=== PATIENT | female | born 1980 | race Caucasian/White ===

== ENCOUNTER 2019-06-04 17:46 | Observation (INO) | payer OTHER ==
--- NOTE | 2019-06-04 17:59 | PDOC ---
Rapid Medical Evaluation Chief Complaint: Shortness of Breath Time Seen by Provider: 06/04/19 17:54 Medical Evaluation: 06/04/19 17:54 I have performed a brief in-person evaluation of this patient. The patient presents with a chief complaint of: Intermittent sob and CP x 3 days. S/p cardiac cath w/ 1 stent placement on 05/29 in [place]. No palpitations , leg pain/swelling, f/c. On metoprolol, asa, gabapentin (developed LUE pain s/ p cath) Pertinent physical exam findings:Stable and well justin I have ordered the following:ekg/cxr/labs The patient will proceed to the ED for further evaluation. 06/04/19 17:58 Discharge Disposition - Diagnosis Chest pain Qualifiers: Chest pain type: unspecified Qualified Code(s): R07.9 - Chest pain, unspecified - Referrals - Patient Instructions - Post Discharge Activity
[2019-06-04 18:49] LABS: BASO % 0.6 % (0-2.0); EOS % 2.5 % (0-4.5); HEMATOCRIT 32.2 % (32.4-45.2); HEMOGLOBIN 10.7 GM/dL (10.7-15.3); LYMPH % 21.9 % (8-40); MCH 27.6 pg (25.7-33.7); MCHC 33.2 g/dl (32.0-36.0); MEAN PLT VOLUME 9.2 fl (7.5-11.1); MONO % 8.2 % (3.8-10.2); NEUT % 66.8 % (42.8-82.8); PLATELET COUNT 297 K/MM3 (134-434); RBC 3.87 M/mm3 (3.60-5.2); RDW 18.7 % (11.6-15.6); WHITE BLOOD COUNT 7.8 K/mm3 (4.0-10.0)
[2019-06-04] MEDS ORDERED: SODIUM CHLORIDE 0.9% 500 ML INFUS.BAG IV ONE (19:03)
[2019-06-04] MEDS ORDERED: ONDANSETRON 4 MG/2 ML VIAL IVPUSH ONE (19:03)
[2019-06-04] MEDS ORDERED: ONDANSETRON 4 MG/2 ML VIAL ONE (19:31)
--- NOTE | 2019-06-04 20:19 | PDOC ---
Documentation entered by Kevin Allen SCRIBE, acting as scribe for Yahaira Zhu DO. Yahaira Zhu DO: This documentation has been prepared by the Alejandro cohen Daniel, SCRIBE, under my direction and personally reviewed by me in its entirety. I confirm that the documentation accurately reflects all work, treatment, procedures, and medical decision making performed by me. Attending Attestation - Resident Resident Name: Greg Jordan - ED Attending Attestation I have performed the following: I have examined & evaluated the patient, The case was reviewed & discussed with the resident, I agree w/resident's findings & plan, Exceptions are as noted - HPI HPI: 06/04/19 19:37 The patient is a 38 year old female with a past medical history of HTN and CAD s /p PCI and balloon valvuloplasty (05/29/2019 [facility]) here today for evaluation of shortness of breath and chest pain. The patient reports that she has had 2 episodes of shortness of breath and left sided 9/10 chest pain that radiates from her jaw to her arm. She notes that these episodes lasted for 30- 60 seconds and notes associated left upper and lower extremity weakness, dizziness, diarrhea, chills, and nausea. Patient denies headache. Denies fever. Denies vomiting. Allergies: acetaminophen, ibuprofen PCP: Cora Navarro - Physicial Exam PE: 06/04/19 19:38 Constitutional: Awake, alert, oriented. No acute distress. Head: Normocephalic. Atraumatic Eyes: PERRL. EOMI. Conjunctivae are not pale. ENT: Mucous membranes are moist and intact. Posterior pharynx without exudates or erythema. Uvula midline. Neck: Supple. Full ROM. No lymphadenopathy. Cardiovascular: Regular rate. Regular rhythm. S1, S2 regular. Distal pulses are 2+ and symmetric. Pulmonary/Chest: No evidence of respiratory distress. Clear to auscultation bilaterally No wheezing, rales or rhonchi. Abdominal: Soft and non-distended. There is no tenderness. No rebound, guarding or rigidity. No organomegaly. No palpable masses. Good bowel sounds. Back: No CVA tenderness. Musculoskeletal: +cath site at right groin. +resolving echymosis around cath site. No masses or expanding hematoma around cath site. No edema. No cyanosis. No clubbing. Full range of motion in all extremities. No calf tenderness. Radial/pedal pulses are intact and 2+ bilaterally Skin: Skin is warm and dry. No petechiae. No purpura. Neurological: +4/5 weakness of the left upper and lower extremities. Alert and oriented to person, place, and time. Cranial nerves II-XII are grossly intact. Normal speech. No sensory deficits. Psychiatric: Good eye contact. Normal interaction, affect and behavior. - Medical Decision Making 06/04/19 20:17 I, Dr. Yahaira Zhu, DO, attest that this document has been prepared under my direction and personally reviewed by me in its entirety. I further attest, that it accurately reflects all work, treatment, procedures and medical decision -making performed by me. a/p: 38yo female with cp/sob/L sided weakness and dizziness -pt with intermittent cp today -pt is taking asa -pt states since her valvuloplasty she has had LUE and LLE weakness - 5 days of symptoms -4/5 weakness to LUE and LLE -concern given recent cath and interventional procedure for cp/sob -will send labs, ekg, cxr -LE duplex -head ct -will discuss with docs at [facility] 06/04/19 21:[address] without acute findings concern given new weakness and cp will admit for eval of LUE and LLE weakness and cp pt agreeable to stay for further eval microblog sent to [facility] for hospitalization 06/04/19 21:49 resident discussed the case with [facility] who accepts the patient to service Heart Score/ECG Review - ECG Intrepretation Comment:: 06/04/19 20:19 sinus at 91, incomplete rbbb, t wave inversions septal leads, abnl, nl axis, no acute st/t wave findings
[2019-06-04 20:23] LABS: BASO % 0.6 % (0-2.0); EOS % 1.6 % (0-4.5); HEMATOCRIT 32.6 % (32.4-45.2); HEMOGLOBIN 10.7 GM/dL (10.7-15.3); LYMPH % 15.8 % (8-40); MCH 27.2 pg (25.7-33.7); MCHC 32.7 g/dl (32.0-36.0); MEAN CELL VOLUME 83.3 fl (80-96); MEAN PLT VOLUME 9.4 fl (7.5-11.1); MONO % 7.9 % (3.8-10.2); NEUT % 74.1 % (42.8-82.8); PLATELET COUNT 310 K/MM3 (134-434); RBC 3.92 M/mm3 (3.60-5.2); RDW 19.2 % (11.6-15.6); WHITE BLOOD COUNT 9.6 K/mm3 (4.0-10.0)
[2019-06-04 20:40] LABS: INR 1.13 (0.83-1.09); PROTHROMBIN TIME (PATIENT) 13.4 SEC (9.7-13.0)
--- NOTE | 2019-06-04 20:44 | PDOC ---
History of Present Illness - General Chief Complaint: Shortness of Breath Stated Complaint: SOB Time Seen by Provider: 06/04/19 17:54 History Source: Patient Exam Limitations: No Limitations - History of Present Illness Initial Comments: 38 y/o F, pmh of Mitral valve stenosis s/p balloon Valvuloplasty, presents to the ED c/o of stabbing like constant left sided chest pain rated 9/10, that began 2 days ago and has since worsened radiating to the left side of the neck and left shoulder accompanied left sided body weakness and numbness and shortness of breath. Pt states that she had a recent elective mitral balloon valvuloplasty done 5 days ago by [facility] label paster Jono Garcia and was sent home on ASA only. As per pt, she had a stress test done prior to the procedure. She denies f/c/n/v/d/abdominal pain, sob, sore throat. 06/04/19 20:44 06/04/19 20:52 06/04/19 20:55 Associated Symptoms: reports: denies symptoms, chest pain, diaphoresis, shortness of breath. denies: cough, fever/chills, headaches Past History - Past Medical History Allergies/Adverse Reactions: Allergies Allergy/AdvReac Type Severity Reaction Status Date / Time acetaminophen [From Tylenol] Allergy Verified 06/04/19 17:54 ibuprofen [From Motrin] Allergy Verified 06/04/19 17:54 COPD: No Dialysis: No Other medical history: GASTRITIS - Immunization History Immunization Up to Date: Yes - Psycho Social/Smoking Cessation Hx Smoking History: Never smoked Hx Alcohol Use: No Drug/Substance Use Hx: No Review of Systems - Review of Systems Able to Perform ROS?: Yes Is the patient limited Mongolian proficient: No Constitutional: Yes: Symptoms Reported. No: Chills, Fever HEENTM: Yes: Symptoms Reported. No: Eye Pain, Blurred Vision Respiratory: Yes: Symptoms reported, Shortness of Breath. No: Cough, Wheezing, Productive cough Cardiac (ROS): Yes: Symptoms Reported, Chest Pain, Chest Tightness. No: Syncope ABD/GI: Yes: Symptoms Reported. No: Abdominal Distended, Diarrhea, Nausea, Vomiting Musculoskeletal: Yes: Symptoms Reported, Neck Pain Neurological: Yes: Symptoms reported, Numbness (left sided arm and leg), Weakness. No: Headache All Other Systems: Reviewed and Negative *Physical Exam - Vital Signs Last Vital Signs Temp Pulse Resp BP Pulse Ox 97.8 F 88 22 H 129/83 100 06/04/19 17:55 06/04/19 19:34 06/04/19 17:55 06/04/19 19:34 06/04/19 19:34 - Physical Exam General Appearance: Yes: Nourished, Appropriately Dressed HEENT: positive: EOMI, HALIMA, Normal ENT Inspection, Pharynx Normal Neck: positive: Trachea midline, Normal Thyroid, Supple Respiratory/Chest: positive: Lungs Clear, Normal Breath Sounds. negative: Crackles, Wheezing Cardiovascular: positive: Regular Rhythm, S1, S2, Tachycardia. negative: Murmur , Gallop/S3, Gallop/S4 (pain is not reproducible ) Vascular Pulses: Dorsalis-Pedis (R): 2+, Doralis-Pedis (L): 2+ Gastrointestinal/Abdominal: positive: Normal Bowel Sounds, Soft. negative: Guarding, Rebound, Tenderness Extremity: positive: Calf Tenderness (b/l calf tenderness) Neurologic: positive: film touch up inspector II-XII NML intact. negative: Fully Oriented, Normal Mood/Affect ED Treatment Course - LABORATORY CBC & Chemistry Diagram: 06/04/19 19:47 06/04/19 20:19 - ADDITIONAL ORDERS Additional order review: Laboratory Results 06/04/19 06/04/19 06/04/19 20:19 20:19 19:30 Sodium Cancelled Potassium Cancelled Chloride Cancelled Carbon Dioxide Cancelled Anion Gap Cancelled BUN Cancelled Creatinine Cancelled Est GFR (CKD-EPI)AfAm Cancelled Est GFR (CKD-EPI)NonAf Cancelled Random Glucose Cancelled Calcium Cancelled Total Bilirubin Cancelled AST Cancelled ALT Cancelled Alkaline Phosphatase Cancelled Creatine Kinase Cancelled Troponin I Cancelled Total Protein Cancelled Albumin Cancelled Triglycerides Cancelled Cholesterol Cancelled Total LDL Cholesterol Cancelled HDL Cholesterol Cancelled 06/04/19 06/04/19 19:47 18:10 RBC 3.92 3.87 MCV 83.3 83.0 MCHC 32.7 33.2 RDW 19.2 H 18.7 H MPV 9.4 9.2 Neutrophils % 74.1 66.8 Lymphocytes % 15.8 D 21.9 Monocytes % 7.9 8.2 Eosinophils % 1.6 2.5 Basophils % 0.6 0.6 - RADIOLOGY Radiology Studies Ordered: Category Date Time Status HEAD CT (STROKE) [CT] Stat CT Scan 06/04/19 19:47 Ordered DUPLEX VASCUL US-2LEGS [US] Stat Ultrasound 06/04/19 19:02 Taken - Medications Given in the ED: ED Medications Discontinued Medications Generic Name Dose Route Start Last Admin Trade Name Melvin PRN Reason Stop Dose Admin Ondansetron HCl 4 mg 06/04/19 19:03 06/04/19 19:48 Zofran Injection IVPUSH 06/04/19 19:04 4 mg ONCE ONE Administration Sodium Chloride 1,000 ml 06/04/19 19:03 06/04/19 19:48 Normal Saline - IV 06/04/19 19:04 1,000 ml ONCE ONE Administration Medical Decision Making - Medical Decision Making 38 y/o F, pmh of Mitral valve stenosis s/p balloon Valvuloplasty, presents to the ED c/o of stabbing like constant left sided chest pain rated 9/10, that began 2 days ago and has since worsened radiating to the left side of the neck and left shoulder accompanied left sided body weakness and numbness and shortness of breath #Chest pain s/p Mitral balloon valvuloplasty r/o ACS and r/o stroke PE: Left sided UE strength 4/5 sensation 4/5 Left LE strength 4/5 and sensation 4/5 Right sided UE and LE strength 5/5 Gait- mild difficulty standing, mild ataxia CN2-12 intact NIH 1 Asa and statins EKG Cardiac profile, trops Lactic acid, PT/INR CT head w/out contrast U/S b/l LE IVF Zofran 06/04/19 20:59 06/04/19 21:01 06/04/19 21:01 06/04/19 21:33 06/04/19 21:49 Discharge - Discharge Information Problems reviewed: Yes Clinical Impression/Diagnosis: Weakness Chest pain Qualifiers: Chest pain type: unspecified Qualified Code(s): R07.9 - Chest pain, unspecified Condition: Stable - Admission Yes - Follow up/Referral Referrals: Cora Navarro MD [Primary Care Provider] - - Patient Discharge Instructions - Post Discharge Activity
[2019-06-04 21:01] LABS: ALK PHOS 41 U/L (45-117); ANION GAP 6 MMOL/L (8-16); BILIRUBIN,TOTAL 0.2 mg/dL (0.2-1); BLOOD UREA NITROGEN 9.7 mg/dL (7-18); CALCIUM 9.6 mg/dL (8.5-10.1); CHLORIDE 106 mmol/L (98-107); CHOLESTEROL 170 mg/dL (50-200); CO2 27 mmol/L (21-32); CREATININE 0.7 mg/dL (0.55-1.3); GLUCOSE,RANDOM 88 mg/dL (74-106); HDL CHOLESTEROL 79 mg/dL (40-60); LDL CHOLESTEROL (ONLY SJRH) 74 mg/dL (5-100); SGOT/AST 8 U/L (15-37); SGPT/ALT 13 U/L (13-61); SODIUM 139 mmol/L (136-145); TOT PROT 7.7 g/dl (6.4-8.2); TRIGLYCERIDES 123 mg/dL (0-150)
[2019-06-04] MEDS ORDERED: ATORVASTATIN CA 80 MG TABLET (FP) PO ONE (21:42)
--- NOTE | 2019-06-04 21:58 | HP ---
CHIEF COMPLAINT: Chest pain PCP: Dr. Navarro Demurrage Man: Dr. Callejas ([facility]) HISTORY OF PRESENT ILLNESS: Ms. Cruz is a 38 year old female with PMH of mitral valve stenosis s/p balloon valvuloplasty (6 days ago) who presents with LUE weakness, numbness and tingling. Pt had procedure on May 29 at [facility] and was discharged with metoprolol, aspirin, and gabapentin. Since her procedure, she has been experiencing intermittent episodes of dizziness, flushing, nausea, and numbness/ tingling in BL hands. She has had 2 severe episodes in the past 2 days. She has also had LUE weakness and pain that is relieved when she takes gabapentin and has noticed mild L-sided facial weakness. Reports a dull chest pain since the surgery that is not severe, states she is more concerned about her other symptoms. Patient states that she has an infection in the bones of her L ear and is supposed to undergo surgery in June. However, she was told by her doctors that she had to receive the balloon valvuloplasty procedure first in order to undergo ear surgery. No other cardiac hx or strokes. No family hx of cardiac disease/strokes. ER course was notable for: (1) CT head: no acute intracranial pathology (2) CXR: no acute pathology (3) Received 80mg statin and 81mg asa Recent Travel: denies PAST MEDICAL HISTORY: As per HPI PAST SURGICAL HISTORY: Balloon valvuloplasty @ [facility] Social History: Smoking: denies Alcohol: denies Drugs: denies Allergies acetaminophen [From Tylenol] Allergy (Verified 06/04/19 17:54) ibuprofen [From Motrin] Allergy (Verified 06/04/19 17:54) HOME MEDICATIONS: REVIEW OF SYSTEMS CONSTITUTIONAL: Absent: fever, chills, diaphoresis, generalized weakness, malaise, loss of appetite, weight change HEENT: Absent: rhinorrhea, nasal congestion, throat pain, throat swelling, difficulty swallowing, mouth swelling, ear pain, eye pain, visual changes CARDIOVASCULAR: chest pain Absent: syncope, palpitations, irregular heart rate, lightheadedness, peripheral edema RESPIRATORY: shortness of breath Absent: cough, dyspnea with exertion, orthopnea, wheezing, stridor, hemoptysis GASTROINTESTINAL: Absent: abdominal pain, abdominal distension, nausea, vomiting, diarrhea, constipation, melena, hematochezia GENITOURINARY: Absent: dysuria, frequency, urgency, hesitancy, hematuria, flank pain, genital pain MUSCULOSKELETAL: Absent: myalgia, arthralgia, joint swelling, back pain, neck pain SKIN: Absent: rash, itching, pallor HEMATOLOGIC/IMMUNOLOGIC: Absent: easy bleeding, easy bruising, lymphadenopathy, frequent infections ENDOCRINE: Absent: unexplained weight gain, unexplained weight loss, heat intolerance, cold intolerance NEUROLOGIC: L-sided weakness, paresthesias Absent: headache, dizziness, unsteady gait, seizure, mental status changes, bladder or bowel incontinence PSYCHIATRIC: Absent: anxiety, depression, suicidal or homicidal ideation, hallucinations. PHYSICAL EXAMINATION Vital Signs - 24 hr 06/04/19 06/04/19 17:55 19:34 Temperature 97.8 F Pulse Rate 102 H Pulse Rate [ 88 Right Radial] Respiratory 22 H Rate Blood Pressure 125/75 Blood Pressure 129/83 [Left Arm] O2 Sat by Pulse 100 100 Oximetry (%) GENERAL: Awake, alert, and fully oriented, in no acute distress. HEAD: Normal with no signs of trauma. EYES: Pupils equal, round and reactive to light, extraocular movements intact, sclera anicteric, conjunctiva clear. No lid lag. EARS, NOSE, THROAT: Ears normal, nares patent, oropharynx clear without exudates. Moist mucous membranes. NECK: Normal range of motion, supple without lymphadenopathy, JVD, or masses. LUNGS: Breath sounds equal, clear to auscultation bilaterally. No wheezes, and no crackles. No accessory muscle use. HEART: Regular rate and rhythm, normal S1 and S2 without murmur, rub or gallop. ABDOMEN: Soft, nontender, not distended, normoactive bowel sounds, no guarding, no rebound, no masses. No hepatomegaly or splenomegaly. MUSCULOSKELETAL: Normal range of motion at all joints. No bony deformities or tenderness. No CVA tenderness. UPPER EXTREMITIES: 2+ pulses, warm, well-perfused. No cyanosis. No clubbing. No peripheral edema. LOWER EXTREMITIES: 2+ pulses, warm, well-perfused. No calf tenderness. No peripheral edema. NEUROLOGICAL: Cranial nerves II-XII intact. Normal speech. Normal gait. 4/5 strength in LUE and LLE. 5/5 on R. PSYCHIATRIC: Cooperative. Good eye contact. Appropriate mood and affect. SKIN: Warm, dry, normal turgor, no rashes or lesions noted, normal capillary refill. Laboratory Results - last 24 hr CBC, BMP 06/04/19 19:47 06/04/19 20:19 ASSESSMENT/PLAN: Ms. Cruz is a 38 year old female with PMH of mitral valve stenosis s/p balloon valvuloplasty (6 days ago) who presents with LUE weakness, numbness and tingling. #Rule out CVA and ACS EKG: NSR, no ST elevations or TWI Initial troponin neg, will trend with serial EKGs CT head: no acute intracranial pathology F/u echo and carotid dopplers Neuro symptoms of unknown etiology, may be 2/2 salicylate toxicity. Will f/u salicylate level and UA Neuro consultation (Dr. Bull) Cont gabapentin 100mg TID Tele monitoring #? Hx of Rheumatoid Arthritis Pt may have hx of RA, will obtain records from [facility] F/u ESR and CRP #S/p balloon valvuloplasty Pt was d/c'ed from [facility] with asa 650mg TID. Will decrease dose to 81mg daily Cont metoprolol succinate 12.5mg daily #FEN No standing fluids Sodium-controlled diet #DVT ppx Heparin #Dispo Monitor on tele Visit type - Emergency Visit Emergency Visit: Yes ED Registration Date: 06/04/19 Care time: The patient presented to the Emergency Department on the above date and was hospitalized for further evaluation of their emergent condition. - New Patient This patient is new to me today: Yes Date on this admission: 06/05/19 - Critical Care Critical Care patient: No ATTENDING PHYSICIAN STATEMENT I saw and evaluated the patient. I reviewed the resident's note and discussed the case with the resident. I agree with the resident's findings and plan as documented. SUBJECTIVE: OBJECTIVE: ASSESSMENT AND PLAN:
[2019-06-04] MEDS ORDERED: ATORVASTATIN CA 80 MG TABLET (FP) ONE (22:41)
--- NOTE | 2019-06-04 23:12 | PN ---
Teaching Attending Note Name of Resident: Cassie Burrows ATTENDING PHYSICIAN STATEMENT I saw and evaluated the patient. I reviewed the resident's note and discussed the case with the resident. I agree with the resident's findings and plan as documented. SUBJECTIVE: 38 year old female with a past medical history of HTN, RA?, Mitral valve stenosis status post balloon valvuloplasty (05/29/2019 [facility])with vague complaints including shortness of breath and Intermittent chest pain that she has had for about 1 day. Patient also complained of numbness in her left hand which is intermittent and numbness in her lower extremities bilaterally. She has felt feverish and reports numerous sick contacts including her cousin who is accompanying her. OBJECTIVE: Last Vital Signs Temp Pulse Resp BP Pulse Ox 97.8 F 79 18 127/77 100 06/04/19 23:01 06/04/19 23:01 06/04/19 23:01 06/04/19 23:01 06/04/19 23:01 GENERAL: Well developed, well nourished. Awake and alert. Appears uncomfortable HEENT: Normocephalic, atraumatic. PERRLA, EOMI. No conjunctival pallor. Sclera are non- icteric. Moist mucous membranes. Oropharynx is clear. NECK: Supple. Full ROM. No JVD. Carotid pulses 2+ and symmetric, without bruits. No thyromegaly. No lymphadenopathy. CARDIOVASCULAR: Regular rate and rhythm. No murmurs, rubs, or gallops. Distal pulses are 2+ and symmetric. PULMONARY: No evidence of respiratory distress. Lungs clear to auscultation bilaterally. No wheezing, rales or rhonchi. ABDOMINAL: Soft. Non-tender. Non-distended. No rebound or guarding. No organomegaly. Normoactive bowel sounds. MUSCULOSKELETAL Normal range of motion at all joints. No bony deformities or tenderness. No CVA tenderness. EXTREMITIES: No cyanosis. No clubbing. No edema. No calf tenderness. SKIN: Warm and dry. Normal capillary refill. No rashes. No jaundice. NEUROLOGICAL: Alert, awake, appropriate. Cranial nerves 2-12 intact. No deficits to light touch and temperature in face, upper extremities and lower extremities. No motor deficits in the in face, upper extremities and lower extremities. PSYCHIATRIC: Cooperative. Good eye contact. Appropriate mood and affect. Abnormal Lab Results 06/04/19 06/04/19 06/04/19 18:10 19:47 20:19 Hct 32.2 L RDW 18.7 H 19.2 H Anion Gap 6 L AST 8 L Alkaline Phosphatase 41 L HDL Cholesterol 79 H Imaging studies reviewed Head CT was negative for any acute intracranial pathology Lower extremity Dopplers negative for any acute DVT ASSESSMENT AND PLAN: #Intermittent chest pain status post recent PCI/mitral valve valvuloplasty. Should rule out ACS at this time given recent procedure, patient is at high risk for acute cardiac events. Troponin was negative x1. Given history of left upper extremity numbness would consider TIA at this time and would rule out CVA. General malaise is suspicious for possible URI. Should rule out influenza. Admit to telemetry Trend troponins Echo Consider cardiology evaluation Sublingual nitroglycerin as needed if persistent chest pain Statin Aspirin Beta-pattie Neurology evaluation Carotid duplex ultrasound Bedside speech and swallow evaluation Send flu swab ESR and CRP DVT prophylaxisheparin subcutaneously
[2019-06-05 00:20] VITALS: BMI 22.4
[2019-06-05] MEDS: HEPARIN NA (PORCINE) 5,000 UNITS/ML 1ML VIAL SQ SCH ×2 (05:59→14:42)
[2019-06-05] MEDS ORDERED: GABAPENTIN 100 MG CAPSULE (FP) PO SCH (06:00)
[2019-06-05 07:33] LABS: BASO % 1.1 % (0-2.0); EOS % 3.5 % (0-4.5); HEMATOCRIT 29.9 % (32.4-45.2); HEMOGLOBIN 9.9 GM/dL (10.7-15.3); LYMPH % 21.9 % (8-40); MCH 27.1 pg (25.7-33.7); MEAN CELL VOLUME 82.2 fl (80-96); MEAN PLT VOLUME 9.1 fl (7.5-11.1); MONO % 10.5 % (3.8-10.2); PLATELET COUNT 281 K/MM3 (134-434); RBC 3.64 M/mm3 (3.60-5.2); RDW 18.9 % (11.6-15.6); WHITE BLOOD COUNT 6.1 K/mm3 (4.0-10.0)
[2019-06-05 08:20] LABS: ALBUMIN 3.7 g/dl (3.4-5.0); BILIRUBIN,TOTAL 0.4 mg/dL (0.2-1); BLOOD UREA NITROGEN 10.7 mg/dL (7-18); CALCIUM 9.3 mg/dL (8.5-10.1); CREATININE 0.6 mg/dL (0.55-1.3); MAGNESIUM 2.5 mg/dL (1.8-2.4); PHOSPHOROUS 4.2 mg/dL (2.5-4.9); POTASSIUM 4.2 mmol/L (3.5-5.1); TOT PROT 7.1 g/dl (6.4-8.2)
--- NOTE | 2019-06-05 08:47 | CONSULT ---
Consult - text type - Consultation Consultation Note: Neurology CHIEF COMPLAINT: Chest pain PCP: Dr. Navarro Assistant Store Manager Operations: Dr. Callejas ([facility]) HISTORY OF PRESENT ILLNESS: 38 year old female with PMH of mitral valve stenosis s/p balloon valvuloplasty ( 6 days prior to day of admission) who presented with LUE weakness, numbness and tingling. Pt had procedure on May 29 at [facility] and was discharged with metoprolol, aspirin, and gabapentin. Since her procedure, she has been experiencing intermittent episodes of dizziness, flushing, nausea, and numbness/ tingling in BL hands. She had 2 severe episodes in the 2 days prior to admission. She also had LUE weakness and pain that relieved when she took gabapentin and also noticed mild L-sided facial weakness. She Reported a dull chest pain since the surgery that is not severe, states she is more concerned about her other symptoms. Patient stated that she has an infection in the bones of her L ear and is supposed to undergo surgery in June. However, she was told by her doctors that she had to receive the balloon valvuloplasty procedure first in order to undergo ear surgery. Ct of head was completed and showed no evidence of acute intracranial patology. This AM, she reports episodic pain but LUE strength intact. Appears to have generalized fatigue and without focal deficits. Past History Recent Travel: denies PAST MEDICAL HISTORY: GASTRITIS PAST SURGICAL HISTORY: Balloon valvuloplasty @ [facility] Social History: Smoking: denies Alcohol: denies Drugs: denies Family: HTN Review of Systems REVIEW OF SYSTEMS CONSTITUTIONAL: Absent: fever, chills, diaphoresis, generalized weakness, malaise, loss of appetite, weight change HEENT: Absent: rhinorrhea, nasal congestion, throat pain, throat swelling, difficulty swallowing, mouth swelling, ear pain, eye pain, visual changes CARDIOVASCULAR: chest pain Absent: syncope, palpitations, irregular heart rate, lightheadedness, peripheral edema RESPIRATORY: shortness of breath Absent: cough, dyspnea with exertion, orthopnea, wheezing, stridor, hemoptysis GASTROINTESTINAL: Absent: abdominal pain, abdominal distension, nausea, vomiting, diarrhea, constipation, melena, hematochezia GENITOURINARY: Absent: dysuria, frequency, urgency, hesitancy, hematuria, flank pain, genital pain MUSCULOSKELETAL: Absent: myalgia, arthralgia, joint swelling, back pain, neck pain SKIN: Absent: rash, itching, pallor HEMATOLOGIC/IMMUNOLOGIC: Absent: easy bleeding, easy bruising, lymphadenopathy, frequent infections ENDOCRINE: Absent: unexplained weight gain, unexplained weight loss, heat intolerance, cold intolerance NEUROLOGIC: L-sided weakness, paresthesias Absent: headache, dizziness, unsteady gait, seizure, mental status changes, bladder or bowel incontinence PSYCHIATRIC: Absent: anxiety, depression, suicidal or homicidal ideation, hallucinations. Allergies/Adverse Reactions: Allergies Allergy/AdvReac Type Severity Reaction Status Date / Time acetaminophen [From Tylenol] Allergy Verified 06/04/19 17:54 ibuprofen [From Motrin] Allergy Verified 06/04/19 17:54 Home Medications Gabapentin 100 mg PO TID 06/04/19 Metoprolol Succinate 12.5 mg PO DAILY 06/04/19 Pantoprazole Sodium [Protonix -] 40 mg PO DAILY 06/04/19 Active Medications Aspirin (Asa -) 81 mg PO DAILY [facility] Gabapentin (Neurontin -) 100 mg PO TID [facility] Last Admin: 06/05/19 05:59 Dose: 100 mg Heparin Sodium (Porcine) (Heparin -) 5,000 unit SQ TID [facility] Last Admin: 06/05/19 05:59 Dose: 5,000 unit Metoprolol Succinate (Toprol Xl -) 12.5 mg PO DAILY [facility] Pantoprazole Sodium (Protonix -) 40 mg PO DAILY [facility] *Physical Exam - Vital Signs Vital Signs Period Temp Pulse Resp BP Sys/Tucker Pulse Ox Last 24 Hr 97.8 F-98.1 F 70-102 18-22 116-142/63-87 99-100 - Physical Exam General Appearance: Yes: Nourished, Appropriately Dressed HEENT: positive: EOMI, HALIMA, Normal ENT Inspection, Pharynx Normal Neck: positive: Trachea midline, Normal Thyroid, Supple Respiratory/Chest: positive: Lungs Clear, Normal Breath Sounds. negative: Crackles, Wheezing Cardiovascular: positive: Regular Rhythm, S1, S2, Tachycardia. negative: Murmur , Gallop/S3, Gallop/S4 (pain is not reproducible ) Vascular Pulses: Dorsalis-Pedis (R): 2+, Doralis-Pedis (L): 2+ Gastrointestinal/Abdominal: positive: Normal Bowel Sounds, Soft. negative: Guarding, Rebound, Tenderness Extremity: positive: Calf Tenderness (b/l calf tenderness) Neurologic: positive: field support representative II-XII NML intact. negative: Fully Oriented, Normal Mood/Affect CBCD WBC 6.1 K/mm3 (4.0-10.0) 06/05/19 07:10 RBC 3.64 M/mm3 (3.60-5.2) 06/05/19 07:10 Hgb 9.9 GM/dL (10.7-15.3) L 06/05/19 07:10 Hct 29.9 % (32.4-45.2) L 06/05/19 07:10 MCV 82.2 fl (80-96) 06/05/19 07:10 MCHC 33.0 g/dl (32.0-36.0) 06/05/19 07:10 RDW 18.9 % (11.6-15.6) H 06/05/19 07:10 Plt Count 281 K/MM3 (134-434) 06/05/19 07:10 MPV 9.1 fl (7.5-11.1) 06/05/19 07:10 CMP Sodium 140 mmol/L (136-145) 06/05/19 07:10 Potassium 4.2 mmol/L (3.5-5.1) 06/05/19 07:10 Chloride 108 mmol/L (98-107) H 06/05/19 07:10 Carbon Dioxide 26 mmol/L (21-32) 06/05/19 07:10 Anion Gap 6 MMOL/L (8-16) L 06/05/19 07:10 BUN 10.7 mg/dL (7-18) 06/05/19 07:10 Creatinine 0.6 mg/dL (0.55-1.3) 06/05/19 07:10 Random Glucose 91 mg/dL (74-106) 06/05/19 07:10 Calcium 9.3 mg/dL (8.5-10.1) 06/05/19 07:10 Total Bilirubin 0.4 mg/dL (0.2-1) 06/05/19 07:10 AST 14 U/L (15-37) L 06/05/19 07:10 ALT 10 U/L (13-61) L 06/05/19 07:10 Alkaline Phosphatase 39 U/L (45-117) L 06/05/19 07:10 Total Protein 7.1 g/dl (6.4-8.2) 06/05/19 07:10 Albumin 3.7 g/dl (3.4-5.0) 06/05/19 07:10 CARDIAC ENZYMES Creatine Kinase 36 U/L (26-192) 06/05/19 00:35 Troponin I < 0.02 ng/ml (0.00-0.05) 06/05/19 00:35 ASSESSMENT/PLAN: 38 year old female with PMH of mitral valve stenosis s/p balloon valvuloplasty ( 6 days prior to day of admission) who presented with LUE weakness, numbness and tingling. Pt had procedure on May 29 at [facility] and was discharged with metoprolol, aspirin, and gabapentin. Since her procedure, she has been experiencing intermittent episodes of dizziness, flushing, nausea, and numbness/ tingling in BL hands. She had 2 severe episodes in the 2 days prior to admission. She also had LUE weakness and pain that relieved when she took gabapentin and also noticed mild L-sided facial weakness. She Reported a dull chest pain since the surgery that is not severe, states she is more concerned about her other symptoms. Patient stated that she has an infection in the bones of her L ear and is supposed to undergo surgery in June. However, she was told by her doctors that she had to receive the balloon valvuloplasty procedure first in order to undergo ear surgery. Ct of head was completed and showed no evidence of acute intracranial patology. This AM, she reports episodic pain but LUE strength intact. Appears to have generalized fatigue and without focal deficits. Due to recent valvular procedure and concern for possibly emboli, will order MRI brain to rule out CVA. Symptoms may be cervical in nature and in that case cervical MRI may be indicated but likely can be pursued as outpatient. Patient remains on aspirin 81 mg and confirm that she is compliant with this. We'll increase gabapentin to 300 mg twice a day which is a more therapeutic dose. Follow-up echo results and cardiology recommendations.
--- NOTE | 2019-06-05 09:36 | PN ---
Teaching Attending Note Name of Resident: Fernnado Martinez ATTENDING PHYSICIAN STATEMENT I saw and evaluated the patient. I reviewed the resident's note and discussed the case with the resident. I agree with the resident's findings and plan as documented. Pending MRI brain to rule out any emboli from the valvuloplasty, no new neurologic symptoms. Cervical MRI can be pursued as outpatient. Continues on gabapentin 300 mg, aspirin 81 mg. Counseled to reaffirm compliance. Will obtain [facility] from [facility] as well as the history regarding the ear surgery. 10 item review of systems completed and is negative aside from any thing mentioned in HPI. Objective: VS, labs, imaging reviewed NAD, AAO, resting comfortably in bed. 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 Neurology saw the patient who encouraged her starting gabapentin and follow-up with neck CT scan. Discussed with the patient's outpatient excel analyst to endorse that they were stable for discharge which was concurred with by our neurology team. The patient will follow up with her cardiology, the primary care, their neurologist, and the livestock broker within 1 week of discharge. This was cleared with the patient's CV who did not require additional CV clearance for DC given the presentation of the symptoms. Has benefitted maximally from hospitalization and can be DC home Agree with DC planning as outlined in resident note.
[2019-06-05] MEDS ORDERED: GABAPENTIN 300 MG CAPSULE (FP) PO SCH (10:00)
[2019-06-05] MEDS ORDERED: ASPIRIN 81 MG CHEWABLE TABLETS PO SCH (10:00)
[2019-06-05] MEDS ORDERED: metoPROLOL SUCCINATE 25 MG TAB.SR.24H (FP) PO SCH (10:00)
[2019-06-05] MEDS ORDERED: PANTOPRAZOLE 40 MG TABLET (FP) PO SCH (10:00)
--- NOTE | 2019-06-05 11:51 | EKG ---
Test Reason : Blood Pressure : / mmHG Vent. Rate : 091 BPM Atrial Rate : 091 BPM P-R Int : 178 ms QRS Dur : 078 ms QT Int : 346 ms P-R-T Axes : 059 046 048 degrees QTc Int : 425 ms NORMAL SINUS RHYTHM LEFT ATRIAL ENLARGEMENT BORDERLINE ECG NO PREVIOUS ECGS AVAILABLE Confirmed by DONALD CORDOVA MD ([id number]) on 06/05/2019 11:51:45 AM Referred By: Confirmed By:DONALD CORDOVA MD
--- NOTE | 2019-06-05 12:43 | ECHO ---
Name: CORNEL BRICEÑO Exam:Adult Echocardiogram Study Date: 06/05/2019 08:36 AM Age: 38 yrs Height: 62 in Weight: 120 lb BSA: 1.5 m2 MMode/2D Measurements & Calculations IVSd: 0.86 cm Ao root diam: 2.5 cm LVIDd: 3.5 cm LA dimension: 2.8 cm LVIDs: 2.4 cm ACS: 1.5 cm LVPWd: 1.0 cm EDV(Teich): 51.0 ml LVOT diam: 2.0 cm ESV(Teich): 20.3 ml RV S Master: 13.3 cm/sec Doppler Measurements & Calculations MV E max master: 196.6 cm/sec MVA(VTI): 0.92 cm2 MV A max master: 204.5 cm/sec MV V2 max: 210.7 cm/sec MV E/A: 0.96 MV max P.8 mmHg MV dec time: 0.39 sec MV V2 mean: 158.4 cm/sec MV mean P.1 mmHg MV V2 VTI: 67.5 cm Ao V2 max: 200.4 cm/sec AI max master: 409.5 cm/sec Ao max P.1 mmHg AI max P.5 mmHg Ao V2 mean: 131.3 cm/sec Ao mean P.2 mmHg AI dec slope: 256.4 cm/sec2 Ao V2 VTI: 41.2 cm KASEY(I,D): 1.5 cm2 AI P1/2t: 467.8 msec KASEY(V,D): 1.3 cm2 LV V1 max P.0 mmHg MR max master: 380.8 cm/sec LV V1 mean P.0 mmHg MR max P.3 mmHg LV V1 max: 86.4 cm/sec LV V1 mean: 67.7 cm/sec LV V1 VTI: 20.3 cm SV(LVOT): 62.3 ml TR max master: 213.9 cm/sec TR max P.8 mmHg PA V2 max: 52.8 cm/sec Med Peak E' Master: 4.6 cm/sec PA max P.1 mmHg Med E/e': 42.9 Lat Peak E' Master: 6.8 cm/sec Lat E/e': 28.8 Procedure A complete two-dimensional transthoracic echocardiogram was performed (2D, M-mode, Doppler and color flow Doppler). Left Ventricle The left ventricular size, thickness and function are normal. The left ventricular ejection fraction is normal. Ejection Fraction = 60-65%. The left ventricular wall motion is normal. Right Ventricle The right ventricle is normal in size and function. Atria Normal left and right atrial size and function. Mitral Valve The mitral valve appears rheumatic. There is moderate mitral stenosis. There is moderate mitral regur gitation. Tricuspid Valve No tricuspid regurgitation. There was insufficient TR detected to calculate RV systolic pressure. Aortic Valve No hemodynamically significant valvular aortic stenosis. Moderate aortic regurgitation. Pulmonic Valve There is no pulmonic valvular regurgitation. Great Vessels The aortic root is normal size. Pericardium/Pleura There is no pericardial effusion. Interpretation Summary The left ventricular size, thickness and function are normal The right ventricle is normal in size and function. The mitral valve appears rheumatic. There is moderate mitral stenosis. There is moderate mitral regurgitation. Moderate aortic regurgitation. MD Uriah Ventura 06/05/2019 12:42 PM
[2019-06-05 15:08] VITALS: BP 115/64; PULSE 77; TEMP 98.2
--- NOTE | 2019-06-05 17:23 | DS ---
Physical Exam: SUBJECTIVE: Patient seen and examined at the bedside. Patient stated she had some pain in her left upper extremity which was better than on admission. OBJECTIVE: Vital Signs Period Temp Pulse Resp BP Sys/Tucker Pulse Ox Last 24 Hr 97.8 F-98.2 F 70-102 18-22 115-142/63-87 99-100 PHYSICAL EXAM GENERAL: The patient is awake, alert, and fully oriented, in no acute distress. HEAD: Normal with no signs of trauma. EYES: PERRL, extraocular movements intact. ENT: Oropharynx clear without exudates, dry mucous membranes. NECK: Trachea midline, full range of motion, supple. LUNGS: Breath sounds equal, clear to auscultation bilaterally, no wheezes, no crackles, no accessory muscle use. HEART: Regular rate and rhythm, S1, S2 without murmur, rub. ABDOMEN: Soft, nontender, nondistended, normoactive bowel sounds, no guarding, no rebound, no masses. EXTREMITIES: 2+ pulses, warm, well-perfused, no edema. NEUROLOGICAL: Cranial nerves II through XII grossly intact. 5/5 muscle strength upper and lower extremities PSYCH: Normal mood, normal affect. SKIN: Warm, dry, normal turgor, no rashes or lesions noted. LABS Laboratory Results - last 24 hr 06/04/19 06/04/19 06/04/19 18:10 19:30 19:47 WBC 7.8 9.6 RBC 3.87 3.92 Hgb 10.7 10.7 Hct 32.2 L 32.6 MCV 83.0 83.3 MCH 27.6 27.2 MCHC 33.2 32.7 RDW 18.7 H 19.2 H Plt Count 297 310 MPV 9.2 9.4 Absolute Neuts (auto) 5.2 7.1 Neutrophils % 66.8 74.1 Lymphocytes % 21.9 15.8 D Monocytes % 8.2 7.9 Eosinophils % 2.5 1.6 Basophils % 0.6 0.6 Nucleated RBC % 0 0 ESR PT with INR INR Sodium Cancelled Potassium Cancelled Chloride Cancelled Carbon Dioxide Cancelled Anion Gap Cancelled BUN Cancelled Creatinine Cancelled Est GFR (CKD-EPI)AfAm Cancelled Est GFR (CKD-EPI)NonAf Cancelled Random Glucose Cancelled Calcium Cancelled Phosphorus Magnesium Total Bilirubin Cancelled AST Cancelled ALT Cancelled Alkaline Phosphatase Cancelled Creatine Kinase Troponin I C-Reactive Protein Total Protein Cancelled Albumin Cancelled Triglycerides Cholesterol Total LDL Cholesterol HDL Cholesterol Salicylates Influenza A (Rapid) Influenza B (Rapid) Blood Type Antibody Screen 06/04/19 06/04/19 06/04/19 20:19 20:19 20:19 WBC RBC Hgb Hct MCV MCH MCHC RDW Plt Count MPV Absolute Neuts (auto) Neutrophils % Lymphocytes % Monocytes % Eosinophils % Basophils % Nucleated RBC % ESR PT with INR 13.40 H INR 1.13 H Sodium 139 Potassium 4.0 Chloride 106 Carbon Dioxide 27 Anion Gap 6 L BUN 9.7 Creatinine 0.7 Est GFR (CKD-EPI)AfAm 126.49 Est GFR (CKD-EPI)NonAf 109.14 Random Glucose 88 Calcium 9.6 Phosphorus Magnesium Total Bilirubin 0.2 AST 8 L ALT 13 Alkaline Phosphatase 41 L Creatine Kinase 39 Cancelled Troponin I < 0.02 Cancelled C-Reactive Protein Total Protein 7.7 Albumin 4.0 Triglycerides 123 Cholesterol 170 Total LDL Cholesterol 74 HDL Cholesterol 79 H Salicylates Influenza A (Rapid) Influenza B (Rapid) Blood Type Antibody Screen 06/04/19 06/05/19 06/05/19 20:19 00:35 03:45 WBC RBC Hgb Hct MCV MCH MCHC RDW Plt Count MPV Absolute Neuts (auto) Neutrophils % Lymphocytes % Monocytes % Eosinophils % Basophils % Nucleated RBC % ESR PT with INR INR Sodium Potassium Chloride Carbon Dioxide Anion Gap BUN Creatinine Est GFR (CKD-EPI)AfAm Est GFR (CKD-EPI)NonAf Random Glucose Calcium Phosphorus Magnesium Total Bilirubin AST ALT Alkaline Phosphatase Creatine Kinase 36 Troponin I < 0.02 C-Reactive Protein Total Protein Albumin Triglycerides Cancelled Cholesterol Cancelled Total LDL Cholesterol Cancelled HDL Cholesterol Cancelled Salicylates Influenza A (Rapid) Negative Influenza B (Rapid) Negative Blood Type Antibody Screen 06/05/19 06/05/19 06/05/19 07:10 07:10 07:10 WBC 6.1 RBC 3.64 Hgb 9.9 L Hct 29.9 L MCV 82.2 MCH 27.1 MCHC 33.0 RDW 18.9 H Plt Count 281 MPV 9.1 Absolute Neuts (auto) 3.8 Neutrophils % 63.0 Lymphocytes % 21.9 D Monocytes % 10.5 H Eosinophils % 3.5 D Basophils % 1.1 Nucleated RBC % 0 ESR 29 H PT with INR INR Sodium 140 Potassium 4.2 Chloride 108 H Carbon Dioxide 26 Anion Gap 6 L BUN 10.7 Creatinine 0.6 Est GFR (CKD-EPI)AfAm 133.07 Est GFR (CKD-EPI)NonAf 114.82 Random Glucose 91 Calcium 9.3 Phosphorus 4.2 Magnesium 2.5 H Total Bilirubin 0.4 AST 14 L ALT 10 L Alkaline Phosphatase 39 L Creatine Kinase Troponin I C-Reactive Protein 0.7 H Total Protein 7.1 Albumin 3.7 Triglycerides Cholesterol Total LDL Cholesterol HDL Cholesterol Salicylates Influenza A (Rapid) Influenza B (Rapid) Blood Type Antibody Screen 06/05/19 06/05/19 06/05/19 07:10 07:10 14:30 WBC RBC Hgb Hct MCV MCH MCHC RDW Plt Count MPV Absolute Neuts (auto) Neutrophils % Lymphocytes % Monocytes % Eosinophils % Basophils % Nucleated RBC % ESR PT with INR INR Sodium Potassium Chloride Carbon Dioxide Anion Gap BUN Creatinine Est GFR (CKD-EPI)AfAm Est GFR (CKD-EPI)NonAf Random Glucose Calcium Phosphorus Magnesium Total Bilirubin AST ALT Alkaline Phosphatase Creatine Kinase Troponin I C-Reactive Protein Total Protein Albumin Triglycerides Cholesterol Total LDL Cholesterol HDL Cholesterol Salicylates 1.7 L Influenza A (Rapid) Influenza B (Rapid) Blood Type O POSITIVE O POSITIVE Antibody Screen Negative HOSPITAL COURSE: Leidy Cruz is a 38 year old female with a past medical history of mitral valve stenosis s/p balloon valvuloplasty (6 days ago) who admitted for CVA rule out. Patient had head CT with no acute pathology. Carotid dopplers no hemodynamically significant stenosis. Echo noted normal LV, normal RV, rehumatic mitral valve, moderate mitral stenosis and regurgitation, and mild aortic regurgitation. Brain MRI noted no acute infarction. Patient was seen by neurology who recommended an increase in the patient's gabapentin and to follow up outpatient. Patient was recommended to have a cervical spine MRI outpatient. Aspirin was decreased to 81mg. Patient' case maker Dr. Callejas was contacted and notified of the patient's medication changes and was in agreement to reduced patient's aspirin and increase of the gabapentin and to follow up with the case maker, and accounts receivable specialist. Patient's symptoms improved while in the hospital. Patient and family member at the bedside were advised of the plan to stop high aspirin dose, start gabapentin, and to follow up with PCP, case maker, accounts receivable specialist, and neurologist. Family and patient were in agreement of the plan and reiterated it. Patient was discharged in stable medical condition. Date of Admission:06/05/19 Date of Discharge: 06/05/19 Minutes to complete discharge: 35 Discharge Summary Problems reviewed: Yes Reason For Visit: WEAKNESS, KAYE PAIN Condition: Stable - Instructions Diet, Activity, Other Instructions: You were admitted for weakness, numbness, and pain. You had an EKG (electrical exam of the heart) which did not show any abnormalities. You had a CT scan of the head which did not show any abnormalities. You had an MRI of the scan which did not show any signs of a stroke. You had an echocardiogram (ultrasound of the heart) which showed normal heart function, size, and thickness, a rheumatic mitral valve, and some other valve abnormalities. You were seen by the neurologist who recommended to start gabapentin for your pain and to follow up with a neck CT scan and to follow up with a neurologist in the outpatient clinic. MEDICATIONS STOP taking the aspiring 325mg. Take only the aspirin 81mg daily and follow up with your case maker. START taking gabapentin 300mg twice a day. Continue to take all of your home medications as prescribed. REFERRALS Please follow up with your primary care physician, Dr. Cora Navarro, within 1 week. Please follow up with your case maker, Dr. Jono Callejas, within 1 week. Please follow up with the neurologist, Dr. Melchor Bull, within 1 week. Please follow up with your accounts receivable specialist, Dr. Andrew Lizarraga, within 1 week. SPECIAL INSTRUCTIONS Do not take any high dose aspirin. Only take 81mg daily and follow up with your case maker. If you have any symptoms of chest pain, shortness of breath, dizziness, lightheadedness, weakness on one side of the body, numbness, tingling, or any other general feelings of unwellness, please call 911 or go to your nearest emergency room. Referrals: Jono Callejas [Other] - 1 Week Andrew Lizarraga [Other] - 1 Week Melchor Bull MD [Staff Physician] - 1 Week Cora Navarro MD [Primary Care Provider] - 1 Week Disposition: HOME - Home Medications Comprehensive Discharge Medication List: Ambulatory Orders Metoprolol Succinate 12.5 mg PO DAILY 06/04/19 Pantoprazole Sodium [Protonix -] 40 mg PO DAILY 06/04/19 Aspirin 81 mg PO DAILY #30 tab.chew 06/05/19 Gabapentin [Neurontin -] 300 mg PO BID #60 capsule 06/05/19 Sennosides [Senna] 2 tab PO HS 06/05/19 Problem List - Problems (1) Chest pain Code(s): R07.9 - CHEST PAIN, UNSPECIFIED Qualifiers: Chest pain type: unspecified Qualified Code(s): R07.9 - Chest pain, unspecified (2) Weakness Code(s): R53.1 - WEAKNESS This patient is new to me today: Yes Date on this admission: 06/05/19 Emergency Visit: Yes ED Registration Date: 06/05/19 Care time: The patient presented to the Emergency Department on the above date and was hospitalized for further evaluation of their emergent condition. Critical Care patient: No - Discharge Referral Referred to [facility] No
== END 2019-06-05 15:09 | disposition home or self-care (01) ==
LOC: JER 17:46 → INTOOBSV 21:50 → UNDOADMOB 21:50 → JERBED 21:50 → J4W 23:30 → JERBED 06-05 13:30
PROVIDERS: ADMIT Internal Medicine; ATTEND Internal Medicine
PROC: 3E0337Z Introduction of Electrolytic and Water Balance Substance into Peripheral Vein, Percutaneous Approach (ICD-10-PCS; principal; 2019-06-05)
PROC: 3E033GC Introduction of Other Therapeutic Substance into Peripheral Vein, Percutaneous Approach (ICD-10-PCS; 2019-06-05)
PROC: 3E013GC Introduction of Other Therapeutic Substance into Subcutaneous Tissue, Percutaneous Approach (ICD-10-PCS; 2019-06-05)
DX: R53.1 Weakness (principal); R07.89 Other chest pain; R06.02 Shortness of breath; I10 Essential (primary) hypertension; I25.10 Atherosclerotic heart disease of native coronary artery without angina pectoris; Z95.5 Presence of coronary angioplasty implant and graft; Z88.6 Allergy status to analgesic agent; Z98.890 Other specified postprocedural states
CPT/HCPCS: 36415; 70450-TC; 70551-TC; 71045-TC-FY; 80053; 80061; 80307; 82550; 83721; 83735; 84100; 84484; 85025; 85610; 85651; 86140; 86850; 86900; 86901; 87804; 93005; 93010; 93306-TC; 93880-TC; 93970-TC; 99285-25; G0378; J1644